=== PATIENT | female | born 1995 | race Caucasian/White ===

== ENCOUNTER 2020-10-16 18:44 | Emergency (ER) | payer MEDICAID ==
[~2020-10-16] VITALS: Ht 165.1 cm; Wt 89.8 kg
--- NOTE | 2020-10-16 19:07 | NUR ---
Dr. Sierra at bedside for MSE
[2020-10-16] MEDS ORDERED: predniSONE 20 MG TABLET PO ONE ×2 (19:15→19:45)
[2020-10-16] MEDS ORDERED: diphenhydrAMINE 50 MG CAPSULE PO ONE (19:15)
[2020-10-16] MEDS ORDERED: FAMOTIDINE 20 MG TABLET PO ONE (19:15)
--- NOTE | 2020-10-16 19:18 | NUR ---
Pt provided urine sample, sent to lab.
[2020-10-16] MEDS ORDERED: diphenhydrAMINE 50 MG CAPSULE ONE (19:23)
[2020-10-16] MEDS ORDERED: FAMOTIDINE 20 MG TABLET ONE (19:24)
[2020-10-16 19:30] LABS: *URINE HCG, QUAL NEGATIVE (NEGATIVE)
--- NOTE | 2020-10-16 19:36 | NUR ---
Mother of patient at bedside
[2020-10-16] MEDS ORDERED: predniSONE 20 MG TABLET ONE (19:39)
[2020-10-16] MEDS ORDERED: ALBUTEROL SULFATE 8 GM HFA.AER.AD IH ONE (19:45)
[2020-10-16] MEDS ORDERED: EPIN0.3P3 IJ (20:25)
[2020-10-16] MEDS ORDERED: ALBU18HF2 INH (20:25)
[2020-10-16] MEDS ORDERED: PRED20TA PO (20:25)
--- NOTE | 2020-10-16 21:16 | NUR ---
Patient discharged to home in stable condition. Written and verbal after care instructions given. Patient verbalizes understanding of instructions. Stressed follow up or return to ER for worsening s/s. Pt. instructed to avoid seafood/shrimp. Vss. Ambulating with steady gait. No signs of distress. All belongings taken.
[2020-10-16 21:17] VITALS: BP 118/60
== END 2020-10-16 21:17 | disposition home or self-care (01) ==
LOC: ER 18:47
DX: T78.40XA Allergy, unspecified, initial encounter (principal); X58.XXXA Exposure to other specified factors, initial encounter; R03.0 Elevated blood-pressure reading, without diagnosis of hypertension; J45.909 Unspecified asthma, uncomplicated; Z91.013 Allergy to seafood
CPT/HCPCS: 84703; 99284; J7512; Q0163; A4663; J3535

== ENCOUNTER 2023-05-11 13:51 | Emergency (ER) | payer MEDICAID, OTHER ==
[~2023-05-11] VITALS: Ht 165.1 cm; Wt 85.7 kg
[~2023-05-11 13:51] MED LIST: ALBU18HF2 INH; EPIN0.3P3 IJ; PRED20TA PO
[2023-05-11] MEDS ORDERED: methylPREDNISolone SOD SUCC 125 MG/2 ML VIAL ONE (14:11)
[2023-05-11] MEDS ORDERED: methylPREDNISolone SOD SUCC 125 MG/2 ML VIAL IV ONE (14:15)
[2023-05-11 14:42] LABS: *BLOOD, URINE 3+ (NEGATIVE); *CLARITY,URINE CLEAR (CLEAR); *COLOR,URINE YELLOW (YELLOW); *KETONES,URINE 3+ (NEGATIVE); *PROTEIN,URINE 1+ (NEGATIVE); *UROBILINOGEN,URINE 0.2 E.U./dl (NORMAL); LEUKOCYTE ESTERASE ,URINE TRACE (NEGATIVE); NITRITE, URINE NEGATIVE (NEGATIVE); PH,URINE 5.5 (5.0-8.0); UGLUCOSE NEGATIVE (NEGATIVE)
[2023-05-11 14:50] LABS: *BILIRUBIN,URIN 1+ (NEGATIVE)
[2023-05-11 14:51] LABS: *URINE HCG, QUAL NEGATIVE (NEGATIVE)
[2023-05-11 14:53] LABS: BASOPHILS % (AUTO) 0.4 % (0.0-2.0); EOSINOPHILS # (AUTO) 0.4 K/uL (0.0-0.7); EOSINOPHILS % (AUTO) 5.3 % (0.0-7.0); HEMATOCRIT 38.7 % (31.2-41.9); HEMOGLOBIN 13.3 g/dL (10.9-14.3); LYMPHOCYTES # (AUTO) 0.6 K/uL (0.8-4.8); LYMPHOCYTES % (AUTO) 7.4 % (20.5-51.5); MEAN CORPUSCULAR HEMOGLOBIN 29.2 uug (24.7-32.8); MEAN CORPUSCULAR HGB CONC 35 g/dL (32.3-35.6); MEAN CORPUSCULAR VOLUME 84.6 fL (75.5-95.3); MONOCYTES # (AUTO) 0.6 K/uL (0.1-1.30); MONOCYTES % (AUTO) 6.7 % (0.0-11.0); NEUTROPHILS # (AUTO) 6.7 K/uL (1.8-8.9); NEUTROPHILS % (AUTO) 80.2 % (38.5-71.5); PLATELET COUNT (AUTO) 235 K/uL (179-408); RED BLOOD CELL COUNT(AUTO) 4.57 MIL/uL (3.63-4.92); RED CELL DISTRIBUTION WIDTH 13.4 % (12.3-17.7); WHITE BLOOD COUNT (AUTO) 8.4 K/uL (3.8-11.8)
[2023-05-11 14:56] LABS: *AMPHETAMINE, URINE NEGATIVE (NEGATIVE); *BARBITURATE, URINE NEGATIVE (NEGATIVE); *BENZODIAZEPINE, URINE NEGATIVE (NEGATIVE); *CANNABINOID, URINE NEGATIVE (NEGATIVE); *COCCAINE, URINE NEGATIVE (NEGATIVE); *OPIATE, URINE NEGATIVE (NEGATIVE); *PHENCYCLIDINE SCREEN,URINE NEGATIVE (NEGATIVE)
[2023-05-11 14:59] LABS: DIFFERENTIAL COMMENT 1
[2023-05-11 14:59] LABS: FENTANYL, URINE NEGATIVE (NEGATIVE)
[2023-05-11 15:08] LABS: CALCIUM 8.5 mg/dL (8.5-10.1); CREATININE 0.6 mg/dL (0.6-1.3); POTASSIUM 3.6 mmol/L (3.5-5.1)
[2023-05-11 15:14] LABS: ALBUMIN 3.9 g/dL (3.4-5.0); BILIRUBIN,TOTAL 0.6 mg/dL (0.2-1.0); TOTAL PROTEIN, SERUM 8.1 g/dL (6.4-8.2)
[2023-05-11 15:37] LABS: BACTERIA,URINE FEW /HPF (NONE SEEN); RBC,URINE TNTC /HPF (0-3); SQUAMOUS EPITHELIAL CELL,UR FEW /HPF (NONE SEEN); WBC,URINE 0-3 /HPF (0-3)
[2023-05-11] MEDS ORDERED: ONDANSETRON 4 MG/2 ML VIAL ONE (16:15)
[2023-05-11] MEDS ORDERED: ONDANSETRON 4 MG/2 ML VIAL IV ONE (16:15)
[2023-05-11] MEDS ORDERED: IV NORMAL SALINE 1000 ML BAG IV ONE (16:15)
[2023-05-11] MEDS ORDERED: HYDROCODONE/APAP 5-325MG TABLET PO ONE (17:30)
[2023-05-11] MEDS ORDERED: HYDROCODONE/APAP 5-325MG TABLET ONE (18:04)
[2023-05-11] MEDS ORDERED: ONDA4TAB5 PO (19:10)
[2023-05-11 19:38] VITALS: BP 132/79; TEMP 98.2; O2SAT 98
== END 2023-05-11 19:39 | disposition home or self-care (01) ==
LOC: ER 13:56
DX: J45.909 Unspecified asthma, uncomplicated (principal); G43.909 Migraine, unspecified, not intractable, without status migrainosus; Z91.013 Allergy to seafood; Z79.899 Other long term (current) drug therapy; Z20.822 Contact with and (suspected) exposure to COVID-19
CPT/HCPCS: 99285; 96374; 70450; 71045; 96361; 96375; 87426; 80053; 84703; 85025; 36415; 83605; 80307; 81001; J2930; J2405; J7040; A4606; A4663